=== PATIENT | male | born 1970 | race Caucasian/White ===

== ENCOUNTER 2022-09-10 11:12 | Emergency (ER) | payer MEDICAID, SELFPAY ==
[2022-09-10 11:12] VITALS: BP 214/112; PULSE 83; RESP 16; TEMP 37.1; O2SAT 94; BMI 37.0
--- NOTE | 2022-09-10 13:03 | ED.VIS.DENTA ---
HPI History of Present Illness Chief Complaint: Dental Informant: patient Onset/Context/Timing Onset: Days (9) Context: Gradual Onset Timing: Continuous Quality: Sharp Location: Right lower premolars Worsened by: Nothing Relieved by: - (Nothing) Associated Symptoms Assocated Symptom - Dental: jaw swelling, face swelling and cold sensitivity; Negative for fever or hot sensitivity Narrative Narrative: This with right lower dental pain that has been getting worse over the last 9 days. Patient states he has not taken anything for it. Patient states he has not made a dental appointment yet. Patient describes his pain as sharp. Patient states it is over the right lower premolar areas. Patient states nothing makes it worse and nothing makes it better. Patient does admit to some cold sensitivity. Patient does admit to some swelling of his jaw and face. Patient admits to some subjective chills but denies any fevers. PFSH PFSH Medical History no medical history no medical history Home Medications clindamycin HCl 300 mg capsule (Cleocin HCl) 300 mg PO Q6H #40 CAPSULES 09/10/22 [Rx Last Taken Unknown] Allergy/AdvReac Type Severity Reaction Status Date / Time Penicillins Allergy Unknown Verified 09/10/22 11:14 Surgical History no surgical history no surgical history Social History Smoking Status: Current every day smoker tobacco type: cigarettes ROS ROS ED Constitutional Constitutional ED: Reports chills; Denies fever(s) Eyes Eyes: Denies blurry vision or change in vision ENT ENT ED: Denies rhinorrhea or sore throat Cardiovascular Cardiovascular: Denies chest pain or palpitations Respiratory/Chest Respiratory/Chest: Denies cough or dyspnea Gastrointestinal Gastrointestinal: Denies nausea or vomiting Genitourinary Genitourinary ED: Denies dysuria or hematuria Musculoskeletal Musculoskeletal: Denies back pain or neck pain Integumentary Denies abscess or rash Neurologic Neurologic: Denies headache(s) or weakness Allergic/Immunologic Allergic/Immunologic ED: Denies mouth swelling or urticaria EXAM Physical Exam Const Vital Signs: 09/10/22 11:12 Temperature 98.7 F Temperature Source Temporal Pulse Rate 83 Respiratory Rate 16 Blood Pressure 214/112 H Blood Pressure Mean 146 Pulse Ox 94 Oxygen Delivery Method Room Air Positive well nourished, well developed and obese General Appearance ED: well developed and NAD Nutritional Appearance: obese HEENT HEENT Narrative: There are dental caries and gingival edema over the right lower premolars. There is no fluctuance. There is no discharge or drainage. There is no evidence of any abscess. There is no sublingual edema. Oral mucosa is pink and moist. Oropharynx is clear. Airway is patent. Mouth ED: Yes oral and palatal mucosa normal Mouth: oral and palatal mucosa normal Throat: posterior oropharynx normal Neck no lymphadenopathy General: Negative for anterior neck swelling, tenderness or submandibular swelling Neuro oriented x3, CN's II-XII intact bilaterally, moves all extremities, no focal motor deficits and no sensory deficits noted Sensorium / Orientation: alert Motor Exam: strength 5/5 throughout Psych mental status grossly normal MDM MDM MDM Narrative Medical decision making narrative: Patient was advised that he has infected dental caries. Patient does not have any evidence of Fadi's angina. Patient was given a dose of clindamycin here. Patient was given a prescription for clindamycin. Smoking cessation was discussed. Patient was instructed to continue Tylenol and ibuprofen as needed for pain. Patient was instructed to follow-up with his dentist in 5 to 7 days. Patient was instructed to return if worse in any way. Patient understands and is agreeable with the plan. All questions were answered. Discharge Plan Triage Chief Complaint: Dental ED Provider: Edgard Pathak Dx/Rx/DC Orders Clinical Impression: Infected dental caries, Tobacco use Instructions: ED Dental Abscess Prescriptions: New clindamycin HCl [Cleocin HCl] 300 mg capsule 300 mg PO Q6H Qty: 40 0RF Primary Care Provider: Care Physician,No Primary Referrals: Care Physician,No Primary [Primary Care Provider] - Dentist,Your [STAFF PHYSICIAN] - 5-7 Days Disposition Disposition: Home, Self Care
[2022-09-10] MEDS: Clindamycin HCl 150 MG Capsule 300 MG PO (13:24)
== END 2022-09-10 13:26 | disposition home or self-care (01) ==
PROVIDERS: Emergency Provider Emergency Medicine; Visit Provider Emergency Medicine
DX: K02.9 Dental caries, unspecified (principal); F17.210 Nicotine dependence, cigarettes, uncomplicated
CPT/HCPCS: 99283